=== PATIENT | male | born 1955 | race Two or more races ===

== ENCOUNTER 2017-07-18 12:55 | Emergency (ER) | payer SELFPAY ==
[~2017-07-18] VITALS: Ht 170.2 cm; Wt 113.4 kg
[2017-07-18 15:20] VITALS: BP 187/102
== END 2017-07-18 16:29 | disposition home or self-care (01) ==
LOC: ER 12:58
DX: M25.462 Effusion, left knee (principal); E11.9 Type 2 diabetes mellitus without complications; I10 Essential (primary) hypertension
CPT/HCPCS: 73562